=== PATIENT | male | born 1960 | race Caucasian/White ===

== ENCOUNTER 2017-01-31 14:00 | Inpatient (IN) | payer BC ==
[~2017-01-31] VITALS: Ht 182.9 cm; Wt 100.1 kg
--- NOTE | ~2017-01-31 | OR ---
PATIENT'S NAME: YOVANY LIZ [facility] AGE: 56 Y [address] ROOM: [place] [address] LOCATION: [facility] ADMIT DATE: 02/07/2017 OR/Procedure Report DISCHARGE DATE: FAMILY PHYSICIAN: Juan F Carrillo MD ATTENDING PHYSICIAN: MARIANO REYES SURGEON: Mariano Reyes MD FOURDRINIER TENDER: Odilon Lynn PA-C and James Yousif CST/FURRIER APPRENTICE. DATE OF PROCEDURE: 02/07/2017 PRE-OP DIAGNOSIS: Degenerative joint disease, right knee. POST-OP DIAGNOSIS: Degenerative joint disease, right knee. OPERATION: Right total knee arthroplasty with computer navigation. ANESTHESIA: Spinal anesthesia plus adductor canal block plus periarticular local anesthesia (ropivacaine with epinephrine and Toradol). ESTIMATED BLOOD LOSS: Less than 10 mL. DRAIN: None. SPECIMEN: None. COMPLICATIONS: None. IMPLANT SYSTEM: Sula Triathlon. 1. Size 6 right posterior stabilized femoral component. 2. Size 5 [place] Modular tibial baseplate. 3. An 11 mm posterior stabilized size 5 X3 tibial polyethylene insert. 4. A 35 mm oval X3 patellar component (triple pegged). INDICATIONS FOR SURGERY: Yovany Bautista is a 56-year-old male who presents with advanced right knee degenerative joint disease and associated severely compromised activities of daily living. The patient has decided to proceed with knee replacement after having been thoroughly counseled regarding the associated risks, benefits, and limitations. We have specifically reviewed the risks and implications of infection, deep venous thrombosis, pulmonary embolism, mortality, neurovascular complications, blood transfusion (and associated potential for disease transmission or transfusion reaction), stiffness, instability, mechanical deterioration of the components (due to wear and or loosening), and the potential need for revision. We have also emphasized the importance of active involvement and compliance with post- operative physical therapy as a means of optimizing range of motion and [facility] AGE: 56 Y [address] ROOM: [place] [address] LOCATION: [facility] ADMIT DATE: 02/07/2017 OR/Procedure Report DISCHARGE DATE: FAMILY PHYSICIAN: Juan F Carrillo MD ATTENDING PHYSICIAN: MARIANO REYES functional recovery. Informed consent has been granted. DESCRIPTION OF PROCEDURE: The patient was positioned supine after administration of anesthesia and prophylactic antibiotics. A well-padded pneumatic tourniquet was placed around the right proximal thigh, and the right lower extremity was prepped and draped with vigilant sterile technique. The patient's name as well as the intended operative side and procedure were confirmed with a verbal time-out involving myself, the circulating nurse, the scrub nurse, and the anesthesiologist. Examination under anesthesia demonstrated no active skin lesions or masses. There was a large effusion. There was no erythema. There was no abnormal warmth. Range of motion under anesthesia was from a 10-degree flexion contracture to 130 degrees of flexion. There was no ligamentous insufficiency. The right lower extremity was elevated and exsanguinated with an Esmarch wrap, and the pneumatic tourniquet was inflated to 300mmHg. The knee was approached through a longitudinal midline incision. A medial parapatellar arthrotomy was performed and the patella was everted. Examination of the joint space demonstrated a large amount of benign-appearing translucent synovial fluid. There was mild generalized synovitis. There were no loose bodies. The cruciate ligaments were intact. Photographic documentation of intraoperative findings was obtained. There was full-thickness loss of articular cartilage involving 80% of the distal portion of the medial femoral condyle and a 2.5 cm diameter region of the medial tibial plateau. There were small osteophytes at the medial tibial plateau and the lateral femoral condyle. There was a moderate-sized osteophyte at the medial femoral condyle. There was a 1 cm diameter region of full-thickness articular cartilage loss at the medial aspect of the lateral tibial plateau. There was a small osteophyte at the lateral tibial plateau. There was a 1 cm diameter partially mobile ossicle at the superior pole of the patella. There was a 1 x 2 cm transverse full thickness articular cartilage defect at the superior aspect of the patella. There was a 1 cm diameter region of full-thickness articular cartilage loss at the lateral aspect of the femoral trochlea. There was high-grade partial- thickness articular cartilage loss involving the majority of the remainder of the femoral trochlea. There were small osteophytes at the medial and lateral margins of the femoral trochlea. Remnants of the menisci and cruciate ligaments were excised. The [place] navigation femoral tracker was pinned in place at the distal aspect of the femoral trochlea. Absence of motion between the femur and the tracking device was confirmed manually and visually. Femoral osseous landmarks were obtained in order to calibrate the computer navigation system. Landmarks PATIENT'S NAME: YOVANY LIZ [facility] AGE: 56 Y [address] ROOM: [address] [place], [place] [address] LOCATION: [facility] ADMIT DATE: 02/07/2017 OR/Procedure Report DISCHARGE DATE: FAMILY PHYSICIAN: Juan F Carrillo MD ATTENDING PHYSICIAN: MARIANO REYES included the center of rotation of the ipsilateral hip, the center-point of the distal femur, the femoral AP axis, 57 points on the medial femoral condyle articular surface, and 57 points on the lateral femoral condyle articular surface. The [employer] computer navigation system was subsequently utilized to position the distal femoral resection block such that the distal femoral resection was performed perfectly perpendicular to the femoral mechanical axis. The distal femoral resection was performed with a [employer] oscillating saw. The [employer] computer navigation tibial tracker was pinned in place at the anterior aspect of the tibial plateau. Absence of motion between the tibia and the tracking device was confirmed manually and visually. Tibial osseous landmarks were obtained in order to calibrate the computer navigation system. Landmarks included the center-point of the tibial plateau, the AP tibial axis, 57 points on the medial tibial plateau articular surface, 57 points on the lateral tibial plateau articular surface, the medial malleolus, and the lateral malleolus. The [employer] computer navigation system was subsequently utilized to position the proximal tibial resection block such that the proximal tibial resection was performed perfectly perpendicular to the tibial mechanical axis. The proximal tibial resection was performed with a [employer] oscillating saw. Perpendicularity of the tibial resection with respect to the tibial shaft axis was reconfirmed by inserting a spacer- block attached to an extramedullary guide vandana. External rotation of the anterior and posterior femoral resections was set parallel to the epicondylar axis and carefully adjusted in order to create a rectangular flexion gap. The box resection was performed with a reciprocating saw. Anterior and posterior chamfer resections were performed with the oscillating saw. Posterior condyle osteophytes were excised with an osteotome. All other osteophytes were excised with a rongeur. Resection of all remnants of the menisci was reconfirmed. Flexion and extension gaps were confirmed to be symmetric and well balanced with a spacer-block technique. The patella resection was performed with an oscillating saw such that the composite thickness of the reconstructed patella was equivalent to the thickness of the afognak patella. Patella tracking was confirmed to be optimal, and there was no need for a lateral retinacular release was required. All trial components were removed and all prepared osseous surfaces were thoroughly irrigated with pulsatile saline lavage and dried prior to cementing all three components in a single stage using Sula Simplex cement containing pre-mixed tobramycin. All extruded excess cement was removed. The entire joint space was thoroughly inspected and thoroughly irrigated with bacteriostatic pulsatile saline lavage to assure that there was no residual debris of any sort. PATIENT'S NAME: YOVANY LIZ [facility] AGE: 56 Y [address] ROOM: [address] [address] LOCATION: [facility] ADMIT DATE: 02/07/2017 OR/Procedure Report DISCHARGE DATE: FAMILY PHYSICIAN: Juan F Carrillo MD ATTENDING PHYSICIAN: MARIANO REYES Final range of motion was from full extension (with no passive hyperextension) to 130 degrees of flexion. Patella tracking was reconfirmed to be optimal. There was excellent anteroposterior stability at 90 degrees of flexion. There was 0 mm of medial lift-off to valgus stress in full extension. There was 1 mm of lateral lift-off to varus stress in full extension. The arthrotomy was closed with multiple simple and [id number] interrupted #1 Vicryl. Subcutaneous tissues were thoroughly re-irrigated with bacteriostatic pulsatile saline lavage. Subcutaneous tissues were re- approximated with simple buried interrupted #0 Vicryl sutures. The skin was closed with simple buried interrupted 2-0 Vicryl sutures followed by surgical juan luis. The dressing consisted of Xeroform gauze, 4x4 gauze, ABD pads and two 6-inch Mann Wraps. There were no intra-operative complications. It should be noted that the physician's visitor use assistant played an active, integral role throughout this entire operation. By providing expert retraction, they greatly facilitated and expedited safe and effective exposure of the distal femur, proximal tibia and patella for preparation and implantation of the components. They were also actively involved in the patient's positioning, prepping and draping, as well as wound closure. MD TERRELL SANCHEZ/johnna /[id number] d: 02/07/172004 t: 02/18/17 [facility], OPERATIVE SUMMARY
--- NOTE | ~2017-01-31 | DS ---
PATIENT'S NAME: KELLY LIZ [facility] AGE: 56 Y [address] ROOM: [place] [address] LOCATION: [facility] ADMIT DATE: 02/07/2017 Discharge Summary DISCHARGE DATE: 02/09/2017 FAMILY PHYSICIAN: Juan F Carrillo MD ATTENDING PHYSICIAN: Mariano Reyes PRIMARY DIAGNOSIS: Degenerative joint disease of the right knee. SECONDARY DIAGNOSES: 1. Hypertension. 2. Hypocholesterolemia. 3. Diabetes mellitus type 2. 4. Obstructive sleep apnea. 5. Benign prostatic hyperplasia. PROCEDURE PERFORMED: Right total knee arthroplasty with computer navigation. HISTORY: The patient is a 56-year-old male, who presents with advanced right knee degenerative joint disease and associated severely compromised activities of daily living. The patient has decided to proceed with total knee arthroplasty after having been thoroughly counseled regarding the risks, benefits, limitations and alternatives. Please refer to the outpatient clinic notes and admission history and physical for this patient. HOSPITAL COURSE: The patient underwent a right total knee arthroplasty on 02/07/2017 without complications. Spinal anesthesia plus adductor canal block plus periarticular local anesthesia was utilized. The patient received 24 hours of perioperative prophylactic antibiotics and remained hemodynamically stable, neurovascularly intact throughout the entire hospital course. The postoperative prophylactic deep venous thrombosis prophylaxis consisted of Xarelto 10 mg, early mobilization and pneumatic compression devices. Daily physical therapy for gait training, transfer training range of motion and quadriceps isometric exercises were received. The patient progressed well in physical therapy. On the date of discharge, 02/09/2017, the incision at the knee was healing well and showed no signs of infection. DISPOSITION: Home. DISCHARGE ACTIVITY: The patient is to bear weight as tolerated with range of motion and quadriceps isometric exercises as instructed. The operative extremity is to be elevated at least 90% of the day. There is to be sterile 4x4 gauze dressings to the incision daily. Dr. Reyes is to be notified immediately if there is any increased pain, fevers, chills erythema or drainage. PATIENT'S NAME: KELLY LIZ [facility] AGE: 56 Y [address] ROOM: [place] [address] LOCATION: [facility] ADMIT DATE: 02/07/2017 Discharge Summary DISCHARGE DATE: 02/09/2017 FAMILY PHYSICIAN: Juan F Carrillo MD ATTENDING PHYSICIAN: Mariano Reyes DISCHARGE MEDICATIONS: 1. Xarelto 10 mg, take 1 tablet p.o. daily for DVT prevention. 2. Valium 5 mg, take 1/2 tablet to 1 tablet every 6 hours as needed for muscle spasms. 3. Dilaudid 2 mg, take 1 to 2 tablets p.o. every 4 hours as needed for pain. 4. Gabapentin 300, take 1 tablet p.o. every night at bedtime. FOLLOWUP: Followup appointment is to be with Dr. Reyes on Tuesday February 14, 2017 for initial postop evaluation and x-rays at that time. PADDY JONES FOR MARIANO REYES MD TLB/modl /[id number] d: 02/14/17 0331 t: 02/17/17 0921, DISCHARGE SUMMARY
[~2017-01-31 14:00] MED LIST: ASPIRIN LO-DOSE81 MG PO; COLACE100 MG PO; DILAUDID 2MG(HYD2 MG PO; FISH OIL 1,0001 EACH PO; FLOMAX0.4 MG PO; FLONASE 50 MCG/16 GM NOSE; GLUCOPHAGE500 MG PO; LIPITOR80 MG PO; LOSARTAN-HCTZ1 EAC1 PO; MIRALAX17 GM PO; MOBIC15 MG PO; THERA-VITE W/ B1 TAB PO; VALIUM5 MG PO; VITAMIN C500 M1 PO; XARELTO10 MG PO
[2017-01-31] MEDS ORDERED: CLEOCIN HCL300 MG PO (15:32)
--- NOTE | 2017-02-07 18:32 | NUR ---
Significant Event: From PACU at 1345. Dressing C/D/I. Ez wrap ice at all times. CSM-Numbness at upper calf. Voids per urinal. Dilaudid 2mg and Tylenol 1000mg at 1708. Accuchecks ACHS. Family at bedside. Follow up:
--- NOTE | 2017-02-08 05:02 | NUR ---
VS stable throughout shift. Pt able to move with little difficulty; standby assist. Normal sensation on affected extremity.Pt responds well to Tylenol 1000mg and Dilaudid 2mg prn for pain.
--- NOTE | 2017-02-08 10:09 | NUR ---
Introduced self and CM role to patient. He identified that he has had surgery before, and borrowed equipment from a friend that he will be using again to assist him when he is discharged from the hospital. No other needs or concerns about discharge at this time. Wrote CM name on markerboard and told him to contact us if any concerns may arise. Plan to return back to home tomjbrw 02/09. CM internet sales consultant TH.
--- NOTE | 2017-02-08 16:45 | NUR ---
Significant Event: roxi dressing to r) knee c/d/i. csm assessments wnl to r) lower extremity. pain well controlled with dialudid 2 tabs given last at 1336 and routine tylenol given last at 1133, and valium 5mg po given at 1535, rates pain 5-3 on pain scale. ambulates to bathroom and up to chair with sba, use of walker/gait belt. accuchecks 140 at breakfast and 175 at lunch. pleasant and coopertive with cares. Follow up:
--- NOTE | 2017-02-09 04:57 | NUR ---
RTK. Vitals stable during shift. Pt able to dorsiflex, plantarfles and wiggle toes. Normal sensation on affected extremity. Standby assist. Activity as tolerated. Cardiac, respiratory, genitourinary, gastrointestinal and neurological assessment within normal limits.
--- NOTE | 2017-02-09 06:01 | NUR ---
I have reviewed the charting of Yesi Grande, Student Nurse for this shift and agree with her documentation. LESLIE Rascon
[2017-02-09] MEDS ORDERED: TYLENOL EXTRA500 MG PO (10:55)
[2017-02-09] MEDS ORDERED: COLACE100 MG PO (10:56)
[2017-02-09] MEDS ORDERED: NEURONTIN300 MG PO (10:58)
[2017-02-09] MEDS ORDERED: MIRALAX17 GM PO (10:59)
[2017-02-09] MEDS ORDERED: XARELTO10 MG PO (11:00)
[2017-02-09] MEDS ORDERED: VALIUM5 MG PO (11:02)
[2017-02-09] MEDS ORDERED: DILAUDID 2MG(HYD2 MG PO (11:04)
--- NOTE | 2017-02-09 15:38 | NUR ---
Discharge instructions given to patient and . Reviewed all medications, care of dressing, s/s infection, when to call the md, dvt prevention, refer to discharge instructions for details. All belongings sent with patient. To front door per w/c.
[2017-07-06] MEDS ORDERED: PROSCAR5 MG PO (09:21)
== END 2017-02-09 13:00 | disposition disaster alternative care site (69) | DRG 470 ==
LOC: G3N 02-07 06:49
PROVIDERS: ADMIT Orthopaedic Surgery
PROC: 8E0YXBZ Computer Assisted Procedure of Lower Extremity (ICD-10-PCS; principal; 2017-02-07)
PROC: 0SRC0J9 Replacement of Right Knee Joint with Synthetic Substitute, Cemented, Open Approach (ICD-10-PCS; principal; 2017-02-07)
DX: M17.11 Unilateral primary osteoarthritis, right knee (principal); I10 Essential (primary) hypertension; E11.9 Type 2 diabetes mellitus without complications; E78.5 Hyperlipidemia, unspecified; N40.1 Benign prostatic hyperplasia with lower urinary tract symptoms; G47.33 Obstructive sleep apnea (adult) (pediatric); R35.1 Nocturia; J30.2 Other seasonal allergic rhinitis; Z96.652 Presence of left artificial knee joint; Z86.010 Personal history of colon polyps; Z87.891 Personal history of nicotine dependence; Z79.82 Long term (current) use of aspirin; Z79.84 Long term (current) use of oral hypoglycemic drugs
CPT/HCPCS: C1713; C1776; J1100; J1885; J2405; J2795; J7030

== ENCOUNTER 2017-07-06 10:00 | Inpatient (IN) | payer BC ==
[~2017-07-06] VITALS: Ht 182.9 cm; Wt 101.1 kg
--- NOTE | ~2017-07-06 | OR ---
PATIENT'S NAME: AGUSTO [facility] AGE: 57 Y [address] ROOM: [address] [address] LOCATION: [facility] ADMIT DATE: 07/11/2017 OR/Procedure Report DISCHARGE DATE: FAMILY PHYSICIAN: Juan F Carrillo MD ATTENDING PHYSICIAN: MARIANO REYES SURGEON: Mariano Reyes MD SANDBLAST CARVER: 1. PADDY Martinez. 2. James Yousif CST/AUDITING SPECIALIST. DATE OF PROCEDURE: 07/11/2017 PREOPERATIVE DIAGNOSIS: Left shoulder degenerative joint disease. POSTOPERATIVE DIAGNOSES: 1. Left shoulder degenerative joint disease. 2. Tear of long head, biceps tendon. PROCEDURES PERFORMED: 1. Left total shoulder arthroplasty. 2. Left biceps tenodesis. ANESTHESIA: General endotracheal anesthesia plus subcutaneous and periarticular local anesthesia (ropivacaine with epinephrine). DRAINS: None. SPECIMEN: None. COMPLICATIONS: None. ESTIMATED BLOOD LOSS: Approximately 100 mL. IMPLANTS: 1. Oscar [place] SureLock suture anchor x1. 2. Oscar [employer], porous plasma glenoid base plate with 6.5 mm central locking screw x1 and 4.75 mm peripheral locking screws x2. 3. Oscar [employer]omet comprehensive shoulder size 13 x 83 mm uncemented humeral stem. 4. Standard E1 glenoid polyethylene liner. 5. A 50 mm x 57 mm radius of curvature (21 mm height) modular humeral head. INDICATION FOR PROCEDURE: Mr. Liz is a 57-year-old male who presents with severe left shoulder glenohumeral degenerative joint disease and associated severely compromised activities of daily living. He has decided to proceed with total shoulder arthroplasty after having been thoroughly counseled regarding risks, benefits, limitations, and alternatives. We have PATIENT'S NAME: AGUSTO [facility] AGE: 57 Y [address] ROOM: [address] [address] LOCATION: [facility] ADMIT DATE: 07/11/2017 OR/Procedure Report DISCHARGE DATE: FAMILY PHYSICIAN: Juan F Carrillo MD ATTENDING PHYSICIAN: MARIANO REYES specifically reviewed risks and implications of infection, stiffness, instability, neurovascular complications, wear, loosening, and potential need for revision. Informed consent granted. DESCRIPTION OF PROCEDURE: The patient was placed in a modified beach chair position after administration of general endotracheal anesthesia and prophylactic antibiotics. Examination under anesthesia demonstrated no active skin lesions or masses or muscle atrophy. There was no instability. Passive forward elevation was limited to 100 degrees. Passive external rotation was limited to 20 degrees. The left shoulder was prepped and draped with vigilant sterile technique. The left shoulder was approached through a standard deltopectoral incision. The cephalic vein and deltopectoral interval were identified. The cephalic vein was mobilized laterally with the deltoid. The outer surface of all components of the rotator cuff appeared normal. There was a very large amount of fluid within the biceps tendon sheath. The biceps tendon sheath was divided longitudinally. This revealed a longitudinal split of the biceps tendon. There was significant flattening of the intra-articular portion of the biceps tendon. The biceps tendon was released at the proximal aspect of the intertubercular groove and tagged with #1 Ethibond suture for later tenodesis. It should be noted that the tenodesis was performed immediately prior to insertion of the final noncemented humeral component using all 4 strands of a [facility] [employer] SureLock suture anchor at the intertubercular groove. The axillary nerve was identified and was vigilantly protected throughout the entire case. The subscapularis tendon and anterior capsule were divided longitudinally 8 mm medial to its insertion and tagged with #1 Ethibond for later repair. There was a very large effusion consisting of benign-appearing translucent synovial fluid. There was a moderate-sized anterior humeral head osteophyte. There was a 1.5 cm inferior humeral head osteophyte. There was full-thickness loss of articular cartilage throughout the majority of the humeral head and the majority of the glenoid. There was no significant erosion of subchondral bone from the glenoid. The humeral head resection was performed with an oscillating saw in 30 degrees of retroversion. The undersurface of the rotator cuff appeared normal and was vigilantly protected throughout the entire case. The humeral canal was reamed by hand with tapered reamers up to a size 13. The size 13 reamer tightly engaged the endosteal cortex of the proximal humerus. The proximal humerus was subsequently broached to a size 13. The size 13 broach obtained excellent axial and rotational stability. All osteophytes were excised, and the humeral head was sized. PATIENT'S NAME: LAKIA LIZSIA Cuevas [facility] AGE: 57 Y [address] ROOM: [address] [address] LOCATION: [facility] ADMIT DATE: 07/11/2017 OR/Procedure Report DISCHARGE DATE: FAMILY PHYSICIAN: Juan F Carrillo MD ATTENDING PHYSICIAN: MARIANO REYES Attention was refocused on the glenoid. Circumferential glenoid exposure was obtained. Degenerative remnants of the glenoid labrum and biceps long head were excised. The glenoid face was reamed over a central guidewire. The noncemented glenoid base plate was impacted into position and obtained an excellent press fit. Superior and inferior and central locking screws were placed (all 3 of which obtained excellent purchase). The final glenoid polyethylene insert was impacted into position with excellent visual and digital confirmation that it had securely seated. Trial reduction was performed with the trial humeral component. There was excellent soft-tissue tension, appropriate humeral height, range of motion, and stability. The final humeral component was impacted into position and obtained excellent axial and rotational stability. The trunnion was thoroughly cleansed and dried and the final humeral head was impacted into position with appropriate orientation. The biceps tenodesis had been performed immediately prior to implantation of the humeral stem. The subscapularis tendon was repaired with multiple [id number] interrupted #2 Orthocord sutures. The joint space and the entire incision were thoroughly irrigated with bacteriostatic pulsatile saline lavage at this point as well as several times throughout the case. Subcutaneous tissues were reapproximated with simple deep interrupted 0 Vicryl. The skin was closed with superficial buried interrupted 2-0 Vicryl followed by a running subcuticular 3-0 Monocryl suture followed by Dermabond, followed by Steri-Strips with benzoin and an occlusive Mepilex dressing. A shoulder immobilizer was placed, and the patient was extubated and transported to the Post Anesthesia Care Unit in stable and comfortable condition. It should be noted that the physician's billing and accounting staff assistant played an active, integral role throughout this entire operation. By providing expert retraction, they greatly facilitated and expedited safe and effective exposure of the proximal humerus and glenoid for preparation and implantation of the components. They were also actively involved in patient's positioning, prepping and draping, as well as wound closure. PATIENT'S NAME: KELLY LIZ [facility] AGE: 57 Y [address] ROOM: [address] [place] [id number] LOCATION: [facility] ADMIT DATE: 07/11/2017 OR/Procedure Report DISCHARGE DATE: FAMILY PHYSICIAN: Juan F Carrillo MD ATTENDING PHYSICIAN: MARIANO REYES MARIANO REYES MD JMW/modl /[id number] d: 07/12/17 1013 t: 07/14/17 2220, OPERATIVE SUMMARY
[~2017-07-06 10:00] MED LIST changes: +CLEOCIN HCL300 MG PO; +NEURONTIN300 MG PO; +PROSCAR5 MG PO; +TYLENOL EXTRA500 MG PO
[2017-07-11 08:43] LABS: BILIRUBIN URINE NEGATIVE (NEGATIVE); BLOOD URINE 10 /UL (NEGATIVE); COLOR URINE YELLOW (YELLOW); GLUCOSE URINE NEGATIVE (NEGATIVE); KETONE URINE NEGATIVE (NEGATIVE); LEUKOCYTES URINE NEGATIVE /UL (NEGATIVE); NITRITE URINE NEGATIVE (NEGATIVE); PROTEIN URINE NEGATIVE (NEGATIVE); TURBIDITY URINE CLEAR (CLEAR); UROBILINOGEN URINE NORMAL (NORMAL)
[2017-07-11 09:05] LABS: RBC URINE NEGATIVE #/HPF (NEGATIVE); WBC URINE NEGATIVE #/HPF (NEGATIVE)
[2017-07-11 09:06] LABS: BACTERIA URINE NEGATIVE (NEGATIVE); EPITHELIAL URINE NEGATIVE #/HPF (NEGATIVE)
--- NOTE | 2017-07-11 17:14 | NUR ---
Significant Event: pt alert and oriented. arrived on floor at 1445. post op vitals cont. hourly vitals start at 1830. lam cath intact. difficult insert in or. leave alone until orders to remove. 02 at 2 lpm/etco2. dressing to lt shoulder intact. ice to shoulder. geoffrey diet well accuchecks ac and hs. in the room with pt. has not been up yet since arriving on floor. Follow up:
--- NOTE | 2017-07-12 04:24 | NUR ---
Significant Event: Dressing is clean, dry and intact. CSM WNL. Accu check. On room air. Has a lam catheter, leave in until Dr. Shore sees today. [place] 2 tabs at 0120. Valium at 1941. Follow up:
--- NOTE | 2017-07-12 08:25 | NUR ---
Introduced self/role to patient, lives in [place] with is . He stated things were going very well and he was feeling good. Would like to go home today if there were no issues voiding. He denied any needs for DME. Denied any barriers to going home or at home. Added my name to his marker board, will follow.
[2017-07-12] MEDS ORDERED: COLACE100 MG PO (15:07)
[2017-07-12] MEDS ORDERED: NORCO 5-325 TA1 EACH PO (15:12)
[2017-07-12] MEDS ORDERED: MIRALAX17 GM PO (15:12)
[2017-07-12] MEDS ORDERED: VALIUM5 MG PO (15:13)
== END 2017-07-12 16:01 | disposition disaster alternative care site (69) | DRG 483 ==
LOC: G3N 07-11 08:11
PROVIDERS: ADMIT Orthopaedic Surgery
PROC: 0RRK0JZ Replacement of Left Shoulder Joint with Synthetic Substitute, Open Approach (ICD-10-PCS; principal; 2017-07-11)
PROC: 0LS40ZZ Reposition Left Upper Arm Tendon, Open Approach (ICD-10-PCS; 2017-07-11)
DX: M19.012 Primary osteoarthritis, left shoulder (principal); I10 Essential (primary) hypertension; E11.9 Type 2 diabetes mellitus without complications; E78.5 Hyperlipidemia, unspecified; N40.1 Benign prostatic hyperplasia with lower urinary tract symptoms; R33.8 Other retention of urine; G47.33 Obstructive sleep apnea (adult) (pediatric); Z87.891 Personal history of nicotine dependence
CPT/HCPCS: C1713; C1776; J1100; J1170; J1885; J2001; J2405; J2795; J3010; J7120